=== PATIENT | female | born 1985 | race Caucasian/White ===

== ENCOUNTER 2017-02-25 09:49 | Outpatient (CLI) | payer MEDICAID ==
--- NOTE | 2017-02-25 11:22 | Ultrasound Report ---
BIOPHYSICAL PROFILE: INDICATION: well being. COMPARISON: 02/21/2017. TECHNIQUE: Transabdominal ultrasound with Doppler interrogation. 2 - breathing movements 2 - movements 2 - posture and tone 2 - Qualitative amniotic fluid volume 8 - TOTAL SCORE OF POSSIBLE 8 Heart Rate (bpm) 145 CONCLUSION: Findings, as above.
[2017-02-25 12:15] VITALS: BP 104/47
[2017-02-25 12:43] LABS: Alanine Aminotransferase 165 units/L (7-56); Albumin 3.2 g/dL (3.9-5); Alkaline Phosphatase 241 units/L (35-129); Bilirubin,Direct < 0.2 mg/dL (0-0.2); Bilirubin,Indirect 0.1 mg/dL; Total Protein 6.5 g/dL (6.3-8.2)
== END 2017-02-25 12:29 | disposition home or self-care (01) ==
LOC: TRG 09:49
PROVIDERS: ATTEND Obstetrics & Gynecology
DX: Z34.93 Encounter for supervision of normal pregnancy, unspecified, third trimester (principal); Z3A.36 36 weeks gestation of pregnancy
CPT/HCPCS: 36415; 59025; 76819; 80074

== ENCOUNTER 2017-03-06 08:20 | Inpatient (IN) | payer MEDICAID ==
--- NOTE | 2017-03-06 08:58 | History and Physical Report ---
History of Present Illness Date of examination: 03/06/17 Date of admission: 03/06/17 08:21 Chief complaint: IOL @ 37+6 wks for cholestasis w/ elevated LFTs History of present illness: EDC Confirmation: 03/21/2017 Gestational Age: 9 6/7 weeks Past History : 3 Term Births: 2 Living Children: 2 Para: 2 # 1 Delivery date: 2008 Weeks Gestation: 40 Delivery type: Hours of labor: 1 Anesthesia type: none Delivery location: [facility] Infant Sex: Female weight: 7-0 # 2 Delivery date: 2011 Weeks Gestation: 40 Delivery type: Hours of labor: 6 Anesthesia type: none Delivery location: [facility] Infant Sex: Female weight: 7-0 Past Medical History: Negative Past Medical History Past Surgical History: Negative Past Surgical History Past Medical History 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 of genital herpes: no Rash, Viral, or Febrile illness since last LMP? no Varicella/Chicken Pox Status: Unknown Genetic History Congenital Heart Defect: Mom: no Dad: no Sapphire Disease: Mom: no Dad: no Thalassemia Mom: no Dad: no Neural Tube Defect Mom: no Dad: no Down's Syndrome Mom: no Dad: no Shelton-Sachs Mom: no Dad: no Sickle Cell Disease/Trait Mom: no Dad: no Hemophilia Mom: no Dad: no Muscular Dystrophy Mom: no Dad: no Cystic Fibrosis Mom: no Dad: no [place] Chorea Mom: no Dad: no Mental Retardation Mom: no Dad: no Fragile X Mom: no Dad: no Other Genetic/Chromosomal Disorder Mom: no Dad: no Child w/other defect Mom: no Dad: no Enviromental Exposures Xray Exposure: no Medication, drug, or alcohol use since LMP: no Chemical/Other Exposure: no Exposure to Cat Liter: no Hx of Parvovirus (Fifth Disease): no Occupational Exposure to Children: none Active Medications (reviewed today): () 2 po qd Current Allergies: No known allergies Past History Past Medical History: other (cholestasis) Past Surgical History: other (see HPI) - Obstetrical History Expected Date of Delivery: 03/21/17 Actual Gestation: 37 Week(s) 6 Day(s) : 3 Para: 2 Hx # Term Pregnancies: 2 Number of Pregnancies: 0 Spontaneous Abortions: 0 Induced : 0 Number of Living Children: 2 Medications and Allergies Allergies Allergy/AdvReac Type Severity Reaction Status Date / Time No Known Allergies Allergy Verified 03/06/17 08:55 Home Medications Medication Instructions Recorded Confirmed Last Taken Type No Known Home Medications [No 02/21/17 02/25/17 Unknown History Reported Home Medications] Active Meds: Active Medications Ephedrine Sulfate (Ephedrine Sulfate) 10 mg IV Q2M PRN PRN Reason: Hypotension Fentanyl (Sublimaze) 100 mcg IV Q2H PRN PRN Reason: Labor Pain Lactated Ringer's (Lactated Ringers) 1,000 mls @ 125 mls/hr IV DIRECT DAVE Oxytocin/Sodium Chloride (Pitocin/Ns 20 Unit/1000ml Drip) 20 units in 1,000 mls @ 125 mls/hr IV DIRECT DAVE Oxytocin/Sodium Chloride (Pitocin/Ns 30 Unit/500ml) 30 units in 500 mls @ 4 mls /hr IV TITR DAVE PRN Reason: Protocol Lidocaine (Xylocaine 2%) 20 ml INFILTRATI ONCE ONE Stop: 03/06/17 08:28 Mineral Oil (Mineral Oil) 30 ml PO QHS PRN PRN Reason: Constipation Ondansetron HCl (Zofran) 4 mg IV Q8H PRN PRN Reason: Nausea And Vomiting Terbutaline Sulfate (Brethine) 0.25 mg SUB-Q ONCE PRN PRN Reason: Hyperstimulation/Hypertonicity Review of Systems All systems: negative Constitutional: other (intense itching ) - Physical Exam Breasts: Positive: normal Cardiovascular: Regular rate Lungs: Positive: Clear to auscultation, Normal air movement Abdomen: Positive: normal appearance, soft Genitourinary (Female): Positive: normal external genitalia, normal perenium Vulva: both: normal Vagina: Positive: normal moisture Uterus: Positive: normal size, normal contour Extremities: Positive: normal Deep Tendon Reflex Grade: Normal +2 Results Result Diagrams: 03/06/17 08:45 All other labs normal. Patient: DOUG MICHELLE ID: [id number] Note: All result statuses are Final unless otherwise noted. Tests: (1) Profile I ([id number]) HBsAg Screen Negative Negative *1 Rubella Antibodies, IgG 6.18 index Immune >0.99 *2 Non-immune <0.90 Equivocal 0.90 - 0.99 Immune >0.99 ABO Grouping O *3 Rh Factor Positive *4 Please note: Prior records for this patient's ABO / Rh type are not available for additional verification. Antibody Screen Negative Negative *5 RPR Non Reactive Non Reactive *6 WBC 5.5 x10E3/uL 3.4-10.8 *7 RBC 3.86 x10E6/uL 3.77-5.28 *8 Hemoglobin 12.6 g/dL 11.1-15.9 *9 Hematocrit 36.8 % 34.0-46.6 *10 MCV 95 fL 79-97 *11 MCH 32.6 pg 26.6-33.0 *12 MCHC 34.2 g/dL 31.5-35.7 *13 RDW 13.1 % 12.3-15.4 *14 Platelets 276 x10E3/uL 150-379 *15 Neutrophils 73 % *16 Lymphs 19 % *17 Monocytes 6 % *18 Eos 2 % *19 Basos 0 % *20 ! Immature Cells <No Reported Value> *21 Neutrophils (Absolute) 4.0 x10E3/uL 1.4-7.0 *22 Lymphs (Absolute) 1.0 x10E3/uL 0.7-3.1 *23 Monocytes(Absolute) 0.3 x10E3/uL 0.1-0.9 *24 Eos (Absolute) 0.1 x10E3/uL 0.0-0.4 *25 Baso (Absolute) 0.0 x10E3/uL 0.0-0.2 *26 ! Immature Granulocytes 0 % *27 ! Immature Grans (Abs) 0.0 x10E3/uL 0.0-0.1 *28 ! NRBC <No Reported Value> *29 Hematology Comments: <No Reported Value> *30 Tests: (2) SMN1 Copy Number Analysis ([id number]) ! Genetic Counselor: Not applicable *31 ! Client Specimen ID: Not applicable *32 ! Specimen Type: SPRCS *33 Peripheral Blood ! Specimen(s) Received: SPRCS *34 1 - Yellow (ACD) 10 ml round bottom tube(s) ! Clinical Data: SPRCS *35 Not Provided ! Ethnicity: SPRCS *36 Not Provided ! SMA Results: SPRCS *37 SMN1 copy number: 2 (Reduced Carrier Risk) ! SMA Interpretation: Note *38 This individual has an SMN1 copy number of two. This result reduces but does not eliminate the risk to be a carrier of SMA. Information regarding clinical indication may provide a more detailed interpretation. ! Comments: Note *39 Spinal muscular atrophy (SMA) is an autosomal recessive disease of variable age of onset and severity caused by mutations (most often deletions or gene conversions) in the survival motor neuron (SMN1) gene. Molecular testing assesses the number of copies of the SMN1 gene. Individuals with one copy of the SMN1 gene are predicted to be carriers of SMA. Individuals with two or more copies have a reduced risk to be carriers. (Affected individuals have 0 copies of the SMN1 gene.) This copy number analysis cannot detect individuals who are carriers of SMA as a result of either 2 (or very rarely 3) copies of the SMN1 gene on one chromosome and the absence of the SMN1 gene on the other chromosome or small intragenic mutations within the SMN1 gene. This analysis also will not detect germline mosaicism or mutations in genes other than SMN1. Additionally, de froylan mutations have been reported in approximately 2% of SMA patients. ! Carrier Detection Rate: Note *40 Carrier Frequency and Risk Reductions for Individuals with No Family History of SMA Reduced Reduced Carrier Carrier Prior Risk for Risk for Detection Carrier 2 copy 3 copy Ethnicity rate(1) Risk(1) result result 94.8% 1:47 1:834 1:5,600 Ashkenazi Christianity 90.5% 1:67 1:611 1:5,400 93.3% 1:59 1:806 1:5,600 90.0% 1:68 1:579 1:5,400 70.5% 1:72 1:130 1:4,200 [place] 90.2% 1:52 1:443 1:5,400 ! Method/Limitations: Note *41 METHOD/LIMITATIONS: Specimen DNA is isolated and amplified by real-time polymerase chain reaction (PCR) for exon 7 of the SMN1 gene and the internal standard reference genes. A mathematical algorithm is used to calculate and report SMN1 copy numbers of 0, 1, 2 and 3. Based upon this analysis, an upper limit of 3 represents the highest degree of accuracy in reporting SMN1 copy number with statistical confidence. Sequencing of the primer and probe binding sites is performed on all samples and samples with one copy of SMN1 by real-time PCR to rule out the presence of sequence variants which could interfere with analysis and interpretation. False positive or negative results may occur for reasons that include genetic variants, blood transfusions, bone marrow transplantation, erroneous representation of family relationships or contamination of a sample with maternal cells. ! References: Note *42 REFERENCES: 1. Gustavo BEYER, Douglas N, Jagruti H, et al. Ortiz-ethnic carrier screening and diagnosis for spinal muscular atrophy: clinical laboratory analysis of >72,400 specimens. Eur J Hum [place] 2012; 20:27-32. 2. Prior RODGERS, et al. Technical standards and guidelines for spinal muscular atrophy testing. [place] Med 2011; 13(7): 686-694. ! Disclaimer: Note *43 The test was developed and its performance characteristics have been determined by [facility]. The laboratory is regulated under the Clinical Laboratory Improvement Amendments of 1988 (CLIA) as qualified to perform high complexity clinical testing. This test must be used in conjunction with clinical assessment, when available. [employer] is a business unit of [employer], a wholly-owned subsidiary of [employer]. ! Electronically Signed by: [facility] *44 Breanna Stevens, Ph.D., [facility], Tests: (3) HB Solu + Rflx Fra (495122) Hemoglobin (Hgb) Solubility Negative Negative *45 Tests: (4) Panel 224051 ([id number]) HIV Screen 4th Generation wRfx Non Reactive Non Reactive *46 Tests: (5) HCV Ab w/Rflx to Verification (404001) ! HCV Ab <0.1 s/co ratio 0.0-0.9 *47 Tests: (1) Chlamydia/GC Amplification (050561) Order Note: Clinical Information: SRC:VR SRC:UR Chlamydia trachomatis, JUAN M Negative Negative *1 Neisseria gonorrhoeae, JUAN M Negative Negative *2 Tests: (2) Strep Gp B JUAN M ([id number]) ! Strep Gp B JUAN M [A] Positive Assessment and Plan 31y/o @ 37+6 weeks, IOL for cholestasis w/ elevated LFTs. Admission orders in EMR - Patient Problems (1) GBS (group B Streptococcus carrier), +RV culture, currently Current Visit: Yes Status: Acute Plan to address problem: Ampicillin q4h until delivery (2) Elevated liver function tests Current Visit: Yes Status: Acute Plan to address problem: monitor, ordered w/ admission labs (3) 37 weeks gestation of Current Visit: Yes Status: Acute (4) Cholestasis during in third trimester Current Visit: Yes Status: Acute Plan to address problem: delivery repeat LFTs w/ admission labs
[2017-03-06] MEDS ORDERED: ZOFRAN IV PRN (09:00)
[2017-03-06] MEDS ORDERED: SUBLIMAZE IV PRN (09:00)
[2017-03-06] MEDS ORDERED: PITOCin/NS 20 UNIT/1000ML DRIP 20 UNITS/1,000 ML BAG IV SCH (09:00)
[2017-03-06] MEDS ORDERED: BRETHINE SUB-Q PRN (09:00)
[2017-03-06] MEDS ORDERED: MINERAL OIL PO PRN (09:00)
[2017-03-06] MEDS ORDERED: ePHEDrine SULFATE IV PRN (09:00)
[2017-03-06] MEDS ORDERED: LACTATED RINGERS 1,000 ML IV SCH (09:00)
[2017-03-06] MEDS ORDERED: PITOCin/NS 30 UNIT/500ML 30 UNITS/500 ML BAG IV SCH (09:00)
[2017-03-06 09:01] LABS: Hematocrit 34.5 % (30.3-42.9); Hemoglobin 12.2 gm/dl (10.1-14.3); Mean Corpuscular HGB Conc 35 % (30-34); Mean Corpuscular Hemoglobin 33 pg (28-32); Mean Corpuscular Volume 93 fl (79-97); Platelet Count 203 K/mm3 (140-440); Red Blood Count 3.71 M/mm3 (3.65-5.03); Red Cell Distribution Width 13.4 % (13.2-15.2); White Blood Count 5.1 K/mm3 (4.5-11.0)
[2017-03-06 09:22] LABS: Albumin 3.1 g/dL (3.9-5); Albumin/Globulin Ratio 0.9 %; Bilirubin,Direct 0.3 mg/dL (0-0.2); Bilirubin,Indirect 0.2 mg/dL; Bilirubin,Total 0.5 mg/dL (0.1-1.2); Total Protein 6.5 g/dL (6.3-8.2)
[2017-03-06] MEDS ORDERED: XYLOCAINE 2% INFILTRATI ONE (09:30)
[2017-03-06] MEDS ORDERED: POLYCILLIN/NS 2 GM/100 ML 2 GM/100 ML BAG IV ONE (10:00)
--- NOTE | 2017-03-06 13:07 | Progress Note ---
Assessment and Plan patient ctx 3-4 minutes in good pattern, pitocin currently @ 12mU. plan discussed with patient for AROM, patient agrees. second dose of amp due 1400. patient does not desires epidural at this time. Continue current management. - Patient Problems (1) GBS (group B Streptococcus carrier), +RV culture, currently Current Visit: Yes Status: Acute (2) Elevated liver function tests Current Visit: Yes Status: Acute (3) 37 weeks gestation of Current Visit: Yes Status: Acute (4) Cholestasis during in third trimester Current Visit: Yes Status: Acute Subjective - Subjective Date of service: 03/06/17 Principal diagnosis: IUP @ 37+6wks, cholestasis and elevated LFTs Interval history: EDC Confirmation: 03/21/2017 Gestational Age: 9 6/7 weeks Past History : 3 Term Births: 2 Living Children: 2 Para: 2 # 1 Delivery date: 2008 Weeks Gestation: 40 Delivery type: Hours of labor: 1 Anesthesia type: none Delivery location: [facility] Sex: Female weight: 7-0 # 2 Delivery date: 2011 Weeks Gestation: 40 Delivery type: Hours of labor: 6 Anesthesia type: none Delivery location: [facility] Infant Sex: Female weight: 7-0 Past Medical History: Negative Past Medical History Past Surgical History: Negative Past Surgical History Past Medical History 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 of genital herpes: no Rash, Viral, or Febrile illness since last LMP? no Varicella/Chicken Pox Status: Unknown Genetic History Congenital Heart Defect: Mom: no Dad: no Sapphire Disease: Mom: no Dad: no Thalassemia Mom: no Dad: no Neural Tube Defect Mom: no Dad: no Down's Syndrome Mom: no Dad: no Shel[place]-Sachs Mom: no Dad: no Sickle Cell Disease/Trait Mom: no Dad: no Hemophilia Mom: no Dad: no Muscular Dystrophy Mom: no Dad: no Cystic Fibrosis Mom: no Dad: no [place] Chorea Mom: no Dad: no Mental Retardation Mom: no Dad: no Fragile X Mom: no Dad: no Other Genetic/Chromosomal Disorder Mom: no Dad: no Child w/other defect Mom: no Dad: no Enviromental Exposures Xray Exposure: no Medication, drug, or alcohol use since LMP: no Chemical/Other Exposure: no Exposure to Cat Liter: no Hx of Parvovirus (Fifth Disease): no Occupational Exposure to Children: none Active Medications (reviewed today): () 2 po qd Current Allergies: No known allergies Patient reports: movement normal, contractions Objective - Vital Signs Vital Signs: Vital Signs - 12hr 03/06/17 03/06/17 03/06/17 09:15 09:47 09:52 Temperature 96.8 F L Pulse Rate 74 59 L 65 Respiratory 16 Rate Blood Pressure 188/76 [Left] O2 Sat by Pulse 95 97 Oximetry 03/06/17 03/06/17 03/06/17 09:57 10:02 10:07 Temperature Pulse Rate 63 68 70 Respiratory Rate Blood Pressure [Left] O2 Sat by Pulse 99 97 98 Oximetry 03/06/17 03/06/17 03/06/17 10:12 10:17 10:22 Temperature Pulse Rate 63 62 76 Respiratory Rate Blood Pressure [Left] O2 Sat by Pulse 97 98 97 Oximetry 03/06/17 03/06/17 03/06/17 10:27 10:32 10:37 Temperature Pulse Rate 63 69 63 Respiratory Rate Blood Pressure [Left] O2 Sat by Pulse 98 98 99 Oximetry 03/06/17 03/06/17 03/06/17 10:42 10:47 10:52 Temperature Pulse Rate 64 72 69 Respiratory Rate Blood Pressure [Left] O2 Sat by Pulse 97 98 98 Oximetry 03/06/17 03/06/17 03/06/17 10:57 11:02 11:07 Temperature Pulse Rate 65 73 78 Respiratory Rate Blood Pressure [Left] O2 Sat by Pulse 99 99 98 Oximetry 03/06/17 03/06/17 03/06/17 11:12 11:17 11:22 Temperature Pulse Rate 70 67 65 Respiratory Rate Blood Pressure [Left] O2 Sat by Pulse 98 98 99 Oximetry 03/06/17 03/06/17 03/06/17 11:27 11:32 11:37 Temperature Pulse Rate 72 76 68 Respiratory Rate Blood Pressure [Left] O2 Sat by Pulse 98 98 99 Oximetry 03/06/17 03/06/17 03/06/17 11:42 11:47 11:52 Temperature Pulse Rate 67 69 71 Respiratory Rate Blood Pressure [Left] O2 Sat by Pulse 99 98 98 Oximetry 03/06/17 03/06/17 03/06/17 11:57 12:02 12:07 Temperature Pulse Rate 70 67 70 Respiratory Rate Blood Pressure [Left] O2 Sat by Pulse 98 99 98 Oximetry 03/06/17 03/06/17 03/06/17 12:12 12:17 12:22 Temperature Pulse Rate 77 77 84 Respiratory Rate Blood Pressure [Left] O2 Sat by Pulse 97 99 98 Oximetry 03/06/17 03/06/17 03/06/17 12:27 12:32 12:37 Temperature Pulse Rate 76 90 71 Respiratory Rate Blood Pressure [Left] O2 Sat by Pulse 99 99 98 Oximetry 03/06/17 03/06/17 03/06/17 12:42 12:45 12:51 Temperature Pulse Rate 82 97 H 80 Respiratory Rate Blood Pressure [Left] O2 Sat by Pulse 97 94 94 Oximetry 03/06/17 03/06/17 12:52 12:56 Temperature Pulse Rate 92 H 70 Respiratory Rate Blood Pressure [Left] O2 Sat by Pulse 94 98 Oximetry - Exam Breasts: normal Cardiovascular: Regular rate Lungs: Clear to auscultation, Normal air movement Abdomen: Present: normal appearance, soft Vulva: both: normal Uterus: Present: normal FHR: auscultation normal, category 1 Uterine Contraction Monitor Mode: External Cervical Dilatation: 4.5 (vertex; AROM, clear fluid.) Cervical Effacement Percentage: 70 station: -1 Uterine Contraction Pattern: Regular Uterine Tone Measurement Phase: Contraction Uterine Contraction Intensity: Moderate Extremities: normal Deep Tendon Reflex Grade: Normal +2 - Labs Labs: Abnormal Labs 03/06/17 03/06/17 08:45 08:45 MCH 33 H MCHC 35 H Direct Bilirubin 0.3 H AST 154 H ALT 182 H Alkaline Phosphatase 252 H Albumin 3.1 L Laboratory Results - last 24 hr 03/06/17 03/06/17 03/06/17 08:45 08:45 08:45 WBC 5.1 RBC 3.71 Hgb 12.2 Hct 34.5 MCV 93 MCH 33 H MCHC 35 H RDW 13.4 Plt Count 203 Total Bilirubin Direct Bilirubin Indirect Bilirubin AST ALT Alkaline Phosphatase Total Protein Albumin Albumin/Globulin Ratio RPR Nonreactive Blood Type O POSITIVE Antibody Screen Negative 03/06/17 08:45 WBC RBC Hgb Hct MCV MCH MCHC RDW Plt Count Total Bilirubin 0.50 Direct Bilirubin 0.3 H Indirect Bilirubin 0.2 AST 154 H ALT 182 H Alkaline Phosphatase 252 H Total Protein 6.5 Albumin 3.1 L Albumin/Globulin Ratio 0.9 RPR Blood Type Antibody Screen
[2017-03-06] MEDS ORDERED: POLYCILLIN/NS 1 GM/50 ML 1 GM/50 ML BAG IV SCH (14:00)
--- NOTE | 2017-03-06 16:24 | Procedure Note ---
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 placed on mother's abdomen for skin to skin, 3 vessel cord clamped and cut. cord blood collected. placenta del intact and complete. Pit IM (IV fell out during pushing.) no lacerations to repair. Apgars 8/9, 6#15. Maternal EBL 200. Mother and remain LDR stable. - Infant A at 1 minute: 8 at 5 minutes: 9 Infant Gender: Female (6#15)
[2017-03-06] MEDS ORDERED: MILK OF MAGNESIA PO PRN (18:32)
[2017-03-06] MEDS ORDERED: TUCKS PAD TP PRN (18:32)
[2017-03-06] MEDS ORDERED: PHENERGAN PO PRN (18:32)
[2017-03-06] MEDS ORDERED: BENADRYL PO PRN (18:32)
[2017-03-06] MEDS ORDERED: TYLENOL PO PRN (18:32)
[2017-03-06] MEDS ORDERED: NORCO 5/325 PO PRN (18:32)
[2017-03-06] MEDS ORDERED: DULCOLAX PR PRN (18:32)
[2017-03-06] MEDS ORDERED: SODIUM CHLORIDE FLUSH SYRINGE 10 ML IV SCH (18:32)
[2017-03-06] MEDS: MOTRIN PO SCH ×2 (18:44→23:57)
[2017-03-06] MEDS ORDERED: COLACE PO SCH (22:00)
[2017-03-07] MEDS: MOTRIN PO SCH ×2 (05:30→12:27)
[2017-03-07 05:47] LABS: Hematocrit 34.3 % (30.3-42.9); Hemoglobin 11.6 gm/dl (10.1-14.3)
[2017-03-07] MEDS ORDERED: BOOSTRIX IM ONE (06:00)
[2017-03-07 06:04] LABS: Albumin 2.9 g/dL (3.9-5); Albumin/Globulin Ratio 0.9 %; Bilirubin,Direct 0.2 mg/dL (0-0.2); Bilirubin,Indirect 0.3 mg/dL; Bilirubin,Total 0.5 mg/dL (0.1-1.2); Total Protein 6.1 g/dL (6.3-8.2)
--- NOTE | 2017-03-07 06:46 | Progress Note ---
Assessment and Plan patient doing well, pain controlled with motrin. Josephhia scant, VSSAF, H&H 11.6/ 34.3, repeat LFTs not changed significantly. No c/o itching. Patient without concern. Patient would like to go home today, will consult Dr. light this morning. - Patient Problems (1) GBS (group B Streptococcus carrier), +RV culture, currently Current Visit: Yes Status: Resolved Plan to address problem: treated x 2 (2) Elevated liver function tests Current Visit: Yes Status: Acute Plan to address problem: repeat AST 177 & ALT 188 (3) Cholestasis during in third trimester Current Visit: Yes Status: Acute (4) (spontaneous vaginal delivery) Current Visit: Yes Status: Acute Subjective - Subjective Date of service: 03/07/17 Principal diagnosis: day #1 ; cholestasis and elevated LFTs Interval history: EDC Confirmation: 03/21/2017 Gestational Age: 9 6/7 weeks Past History : 3 Term Births: 2 Living Children: 2 Para: 2 # 1 Delivery date: 2008 Weeks Gestation: 40 Delivery type: Hours of labor: 1 Anesthesia type: none Delivery location: [facility] Sex: Female weight: 7-0 # 2 Delivery date: 2011 Weeks Gestation: 40 Delivery type: Hours of labor: 6 Anesthesia type: none Delivery location: [facility] Sex: Female weight: 7-0 Past Medical History: Negative Past Medical History Past Surgical History: Negative Past Surgical History Past Medical History 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 of genital herpes: no Rash, Viral, or Febrile illness since last LMP? no Varicella/Chicken Pox Status: Unknown Genetic History Congenital Heart Defect: Mom: no Dad: no Sapphire Disease: Mom: no Dad: no Thalassemia Mom: no Dad: no Neural Tube Defect Mom: no Dad: no Down's Syndrome Mom: no Dad: no Shelton-Sachs Mom: no Dad: no Sickle Cell Disease/Trait Mom: no Dad: no Hemophilia Mom: no Dad: no Muscular Dystrophy Mom: no Dad: no Cystic Fibrosis Mom: no Dad: no [place] Chorea Mom: no Dad: no Mental Retardation Mom: no Dad: no Fragile X Mom: no Dad: no Other Genetic/Chromosomal Disorder Mom: no Dad: no Child w/other defect Mom: no Dad: no Enviromental Exposures Xray Exposure: no Medication, drug, or alcohol use since LMP: no Chemical/Other Exposure: no Exposure to Cat Liter: no Hx of Parvovirus (Fifth Disease): no Occupational Exposure to Children: none Active Medications (reviewed today): () 2 po qd Current Allergies: No known allergies Patient reports: appetite normal, voiding normally, pain well controlled, ambulating normally, no dizzy ambulation, no nauseated Melvin: doing well, nursing well Objective - Vital Signs Latest vital signs: Vital Signs Temp Pulse Resp BP BP Pulse Ox 03/06/17 22:04 98.2 F 73 18 133/76 96 03/06/17 18:00 97.2 F L 61 20 115/69 03/06/17 17:49 79 137/75 03/06/17 16:04 99 H 96 03/06/17 16:03 59 L 94 03/06/17 15:59 95 H 97 03/06/17 15:57 91 H 91 03/06/17 15:54 82 96 03/06/17 15:49 85 98 03/06/17 15:44 73 98 03/06/17 15:39 78 98 03/06/17 15:34 78 97 03/06/17 15:29 91 H 96 03/06/17 15:24 88 98 03/06/17 15:21 37 L 0 L 03/06/17 15:19 82 98 03/06/17 15:14 81 98 03/06/17 15:09 74 98 03/06/17 15:04 80 97 03/06/17 14:59 92 H 97 03/06/17 14:54 86 97 03/06/17 14:49 84 97 03/06/17 14:44 80 97 03/06/17 14:39 82 97 03/06/17 14:34 85 98 03/06/17 14:29 84 97 03/06/17 14:24 84 96 03/06/17 14:19 81 97 03/06/17 14:14 76 97 03/06/17 14:09 78 97 03/06/17 14:04 82 97 03/06/17 13:59 79 97 03/06/17 13:54 78 98 03/06/17 13:49 80 97 03/06/17 13:44 78 97 03/06/17 13:39 79 98 03/06/17 13:34 83 98 03/06/17 13:29 74 98 03/06/17 13:24 73 97 03/06/17 13:19 72 97 03/06/17 13:14 79 97 03/06/17 13:09 78 129/76 98 03/06/17 13:05 97.2 F L 18 03/06/17 12:56 70 98 03/06/17 12:52 92 H 94 03/06/17 12:51 80 94 03/06/17 12:45 97 H 94 03/06/17 12:42 82 97 03/06/17 12:37 71 98 03/06/17 12:32 90 99 03/06/17 12:27 76 99 03/06/17 12:22 84 98 03/06/17 12:17 77 99 03/06/17 12:12 77 97 03/06/17 12:07 70 98 03/06/17 12:02 67 99 03/06/17 11:57 70 98 03/06/17 11:52 71 98 03/06/17 11:47 69 98 03/06/17 11:42 67 99 03/06/17 11:37 68 99 03/06/17 11:32 76 98 03/06/17 11:27 72 98 03/06/17 11:22 65 99 03/06/17 11:17 67 98 03/06/17 11:12 70 98 03/06/17 11:07 78 98 03/06/17 11:02 73 99 03/06/17 10:57 65 99 03/06/17 10:52 69 98 03/06/17 10:47 72 98 03/06/17 10:42 64 97 03/06/17 10:37 63 99 03/06/17 10:32 69 98 03/06/17 10:27 63 98 03/06/17 10:22 76 97 03/06/17 10:17 62 98 03/06/17 10:12 63 97 03/06/17 10:07 70 98 03/06/17 10:02 68 97 03/06/17 09:57 63 99 03/06/17 09:52 65 97 03/06/17 09:47 59 L 95 03/06/17 09:15 96.8 F L 74 16 188/76 Intake and Output 03/06/17 03/06/17 03/07/17 15:59 23:59 07:59 Intake Total 27.267 240 120 Output Total 1300 Balance 27.267 240 -1180 Intake: IV 27.267 PITOCin/NS 30 UNIT/500ML 27.267 30 units In 500 ml @ 4 mls/hr IV TITR DAVE Rx#: [id number] Oral 240 120 Output: Urine 1300 Void 1300 Other: Total, Intake Amount 240 120 Total, Output Amount 1000 # Voids Void 1 # Bowel Movements 0 Weight 89.358 kg Estimated Blood Loss 300 - Exam Breasts: Present: normal, Cardiovascular: Present: Regular rate Lungs: Present: Clear to auscultation, Normal air movement Abdomen: Present: normal appearance, soft, normal bowel sounds Vulva: both: normal Uterus: Present: normal, firm, fundal height at umbilicus Extremities: Present: normal - Labs Labs: Abnormal lab results 03/06/17 03/06/17 03/07/17 Range/Units 08:45 08:45 05:19 MCH 33 H (28-32) pg MCHC 35 H (30-34) % Direct Bilirubin 0.3 H (0-0.2) mg/dL AST 154 H 177 H (5-40) units/L ALT 182 H 188 H (7-56) units/L Alkaline Phosphatase 252 H 221 H (35-129) units/L Total Protein 6.1 L (6.3-8.2) g/dL Albumin 3.1 L 2.9 L (3.9-5) g/dL
[2017-03-07] MEDS ORDERED: PRENATAL VITAMIN PO SCH (10:00)
[2017-03-07] MEDS ORDERED: Fluarix Quad 2017-2018(36 MOS+ IM ONE ×2 (12:00→12:45)
[2017-03-07 17:19] VITALS: BP 114/73
--- NOTE | 2017-03-07 17:49 | Discharge Summary ---
Providers - Providers Date of Admission: 03/06/17 08:21 Date of discharge: 03/07/17 Attending physician: KARTIK ARAIZA Primary care physician: SENIOR GEOLOGIST Hospitalization Reason for admission: active labor Delivery: Episiotomy: none Laceration: none Other procedures: none complications: none Discharge diagnosis: IUP at term delivered baby: female Condition at discharge: Good Disposition: DC-01 TO HOME OR SELFCARE - Discharge Diagnoses (1) Encounter for full-term uncomplicated delivery Status: Acute Plan - Provider Discharge Summary Activity: routine, no sex for 6 weeks, no heavy lifting 4 weeks, no strenuous exercise Diet: routine Instructions: routine Additional instructions: [] Smoking cessation referral if applicable(refer to patient education folder for contact #) [] Refer to [facility] Booklet Call your doctor immediately for: * Fever > 100.5 * Heavy vaginal bleeding ( >1 pad per hour) * Severe persistent headache * Shortness of breath * Reddened, hot, painful area to leg or breast * Drainage or odor from incision. * Keep incision clean and dry at all times and follow doctor's instructions regarding bathing/showering - Follow up plan Follow up: PRIMARY CARE, [Primary Care Provider] - 7 Days
== END 2017-03-07 19:25 | disposition home or self-care (01) | DRG 775 ==
LOC: LD 08:20 → UNDOADMIN 08:20 → LD 08:21 → OB 18:20
PROVIDERS: ADMIT Obstetrics & Gynecology; ATTEND Obstetrics & Gynecology
PROC: 10E0XZZ Delivery of Products of Conception, External Approach (ICD-10-PCS; principal; 2017-03-06)
PROC: 3E033VJ Introduction of Other Hormone into Peripheral Vein, Percutaneous Approach (ICD-10-PCS; 2017-03-06)
DX: O99.824 Streptococcus B carrier state complicating childbirth (principal); Z37.0 Single live birth; Z3A.37 37 weeks gestation of pregnancy; O26.62 Liver and biliary tract disorders in childbirth; K83.1 Obstruction of bile duct
CPT/HCPCS: 36415; 80074; 85014; 85018; 85027; 86592; 86850; 86900; 86901; 88307; 90471; 90686; G0008; J0290; J2590; J7120